=== PATIENT | male | born 1975 | race Caucasian/White ===

== ENCOUNTER 2022-06-03 16:27 | Emergency (ER) | payer MEDICAID ==
[~2022-06-03 16:27] MED LIST: ATEN-41 PO
[2022-06-03] MEDS ORDERED: DIVALPROEX SODIUM 500 MG TAB.SR.24H (DEPAKOTE ER) PO ONE (17:38)
[2022-06-03] MEDS ORDERED: DIVALPROEX SODIUM 250 MG TABLET(DEPAKOTE) PO ONE (17:38)
[2022-06-03] MEDS ORDERED: DIVA-74 PO (17:50)
== END 2022-06-03 17:00 | disposition left against medical advice (07) ==
LOC: SED 16:27
DX: Z76.0 Encounter for issue of repeat prescription (principal); Z53.21 Procedure and treatment not carried out due to patient leaving prior to being seen by health care provider

== ENCOUNTER 2022-06-03 16:51 | Emergency (ER) | payer MEDICAID ==
[~2022-06-03] VITALS: Ht 175.3 cm; Wt 108.9 kg
[2022-06-03 17:17] VITALS: BP_SYST 133
[2022-06-03] MEDS ORDERED: DIVALPROEX SODIUM 250 MG TABLET(DEPAKOTE) PO ONE (17:30)
[2022-06-03] MEDS ORDERED: DIVA-74 PO (17:50)
== END 2022-06-03 18:17 | disposition home or self-care (01) ==
LOC: SED 16:51
DX: G40.909 Epilepsy, unspecified, not intractable, without status epilepticus (principal); Z76.0 Encounter for issue of repeat prescription
CPT/HCPCS: 99283